=== PATIENT | female | born 1995 | race Caucasian/White ===

== ENCOUNTER → 2017-04-05 | Outpatient (CLI) | payer OTHER ==
--- NOTE | 2017-04-05 11:15 | RADIOLOGY REPORT (SQ) ---
EXAM DESCRIPTION: MRI ABDOMEN COMBO COMPLETED DATE/TIME: 04/05/2017 8:30 am REASON FOR STUDY: ABNORMAL RADIOLOGICAL FINDING OF LIVER (K76.89), LIVER DISEASE (K76.9), RUQ R10.11 RIGHT UPPER QUADRANT PAIN K76.89 OTHER SPECIFIED DISEASES OF LIVER K76.9 LIVER DISEASE, UNSPECIFI ED COMPARISON: None. TECHNIQUE: Multiplanar multisequence imaging performed without and with contrast including sagittal, axial and coronal T2, axial T1, axial gradient fat sat T1, axial, sagittal and coronal fat sat T1 po st contrast. CONTRAST TYPE AND DOSE: 20 mL Multihance. RENAL FUNCTION: GFR > 60. LIMITATIONS: None. FINDINGS: LIVER: In the left lobe liver along the falciform ligament, a subtle nodule is present, 2 cm in diameter. This has minimal increased T2 signal, is slightly dark red signal then liver bobo T1 in and out of phase images, and has avid contrast enhancement during the arterial phase. This most likely represents a small at adenoma or focal nodular hyperplasia. Malignancy could not entirely be excluded. It is doubtful this represents a hemangioma. Of note, there is a recanalized umbilical ve in adjacent to the nodule. Remainder of the liver is otherwise unremarkable. No masses or biliary ductal dilatation. Normal co ntrast enhancement of the hepatic veins and portal vein. SPLEEN: Normal size. No focal lesions. PANCREAS: No masses. No adjacent inflammation or peripancreatic fluid collections. Pancreatic duct no t dilated. GALLBLADDER: No masses. No stones. No gallbladder wall thickening or pericholecystic fluid. ADRENAL GLANDS: No significant masses or asymmetry. RIGHT KIDNEY AND URETER: No masses. No hydronephrosis. LEFT KIDNEY AND URETER: No masses. No hydronephrosis. AORTA AND VESSELS: No aneurysm. No dissection. Renal arteries, SMA, celiac without stenosis. RETROPERITONEUM: No retroperitoneal adenopathy, hemorrhage or masses. BOWEL: Grossly unremarkable ABDOMINAL WALL AND PERITONEUM: No hernias. No free fluid. BONES: No acute or significant findings. OTHER: No other significant finding. IMPRESSION: 2 cm nodule in segment 4A of the left lobe liver adjacent to the falciform ligament and a recannulized umbilical vein. This most likely represents an adenoma or focal nodular hyperplasia. A primary hepatocellular neoplasm could not entirely be excluded. Signal and enhancement pattern is atypical for hemangioma TECHNICAL DOCUMENTATION: JOB ID: [id number]- All Rights Reserved
== END ==
LOC: RAD 07:03
PROVIDERS: ATTEND Internal Medicine Gastroenterology
DX: R10.11 Right upper quadrant pain (principal); K76.89 Other specified diseases of liver; R16.0 Hepatomegaly, not elsewhere classified
CPT/HCPCS: 74183; A9576